=== PATIENT | female | born 1955 | race Caucasian/White ===

== ENCOUNTER → 2018-04-05 18:31 | Outpatient (CLI) | payer BC ==
[~2018-04-05 18:31] MED LIST: ADDERALL 30 MG30 MG PO; BAYER CHEWABLE81 MG PO; METOPROLOL TART25 MG PO; PLAVIX75 MG PO; WELLBUTRIN SR150 MG PO; ZIAC 5-6.25 MG1 TAB PO
[2018-04-05 19:24] LABS: CHOL - HDL RATIO 5.4 ratio (2.3-4.1); LDL-HDL RATIO 3.8 ratio (1.5-3.5)
[2018-04-13 07:46] VITALS: BMI 45.0
== END | disposition home or self-care (01) ==
LOC: D.LABREF 18:31
PROVIDERS: Internal Medicine Cardiovascular Disease
DX: E78.5 Hyperlipidemia, unspecified (principal)

== ENCOUNTER → 2018-04-13 06:58 | Outpatient (CLI) | payer BC ==
[~2018-04-13] VITALS: Ht 152.4 cm; Wt 104.5 kg
--- NOTE | ~2018-04-13 | OP ---
PATIENT NAME: MUNDO CARDONA MEDICAL RECORD: [id number] :59 LOCATION:D.CAT ADMISSION DATE: SURGEON: DARLEEN SCHULTE MD DATE OF OPERATION: 04/13/2018 PROCEDURE: Left heart cath, LV gram, coronary angiogram, PTCA and stenting of the diagonal. DESCRIPTION OF PROCEDURE: The patient brought to cardiac catheterization lab in stable condition. The right wrist was sterilely prepped and draped. The patient had a 6-Upper Sorbian sheath placed into the right radial artery using a modified Seldinger technique. The patient then had serial catheters utilized to intubate the left coronary artery, the right coronary artery, and the left ventricular cavity. We then exchanged the diagnostic catheters for interventional guiding catheters where we were able to intubate the left main and get distal double wire positioned into the LAD and the diagonal system. We were then able to advance a 2.0 x 8 balloon into the area of stenosis in the diagonal vessel showing still greater than 50% residual stenosis. We delivered a 2.25 x 15 stent into the area of stenosis and that was taken to 16 atmospheres. We then showed continued residual stenosis of about 40% and under sizing of the stent, so we took a 2.5 balloon, took it to rated burst pressure and we still felt that the vessel had grown even further after that balloon attempts, so we took a 3.0 balloon and performed angioplasty at 12 atmospheres with a final luminal gain theoretically of 3.2 mm and we show good opposition of the stent to the proximal and distal wall and the procedure was terminated successfully with the reduction of the 95% stenosis to less than 10% residual stenosis. FINDINGS: 1. Left main is a short vessel, immediately bifurcating into a large, dominant circumflex and to an LAD. There is no stenosis in the left main. 2. The LAD itself is a smallish vessel with a mid 40-50% stenosis. 3. The diagonal is actually larger in caliber than the LAD and had a 95% stenosis proximally. 4. The circumflex is a very large dominant vessel, large caliber, large in distribution, dominant distribution without significant stenosis. 5. The RCA is a small vessel, nondominant with mid plaquing. HEMODYNAMICS: Left ventricular ejection fraction is 60%. End-diastolic pressure is normal. There is no significant mitral regurgitation. There is no gradient across the aortic valve. IMPRESSION: 1. Severe single-vessel coronary artery disease. Mild disease remaining in the left anterior descending with preserved left ventricular function. 2. Successful percutaneous transluminal coronary angioplasty and stenting of the diagonal vessel with a drug-eluting stent. RECOMMENDATION: 1. Dual-antiplatelet therapy for 1 year, aggressive lipid modification in the form of maximum atorvastatin 80 mg a day with an optimal LDL value of 70 mg per deciliter or less, aggressive hypertensive control with preferred values of 140/80 or less utilizing beta blockers as clinically tolerated. 2. Continue antianginal therapy with nitrates for symptoms. Follow up in 2 OPERATIVE REPORT [id number] MUNDO CARDONA. TRANSINT:[id number] Voice Confirmation ID: [id number] DOCUMENT ID: [id number] DARLEEN SCHULTE MD at 2344 CC: [id number] DICTATION DATE: 04/13/18923 WELL SERVICE FLOOR WORKER: 04/13/18 1002 DEP CLI 04/13/18 [address] [place] [address]
--- NOTE | ~2018-04-13 | HEMODYNAMI ---
PATIENT:MUNDO CARDONA MEDICAL RECORD: [id number] : 59 LOCATION:DDONYA ADMISSION DATE: 04/13/18 Generatedon:04/13/20189:24 Patient name: MUNDO CARDONA Patient #: [id number] SSN: : 1955 Date of study: 04/13/2018 Page: Of Hemodynamic Procedure Report Patient Data Patient Demographics Procedure consent was obtained First Name: MUNDO Gender: Female Last Name: DULCE : 1955 [facility] Initial: J Age: 63 year(s) Patient #: [id number] Race: Unknown Additional ID: [id number] Contact details Address: [address] [address] State: [place] City: [place] Zip code: [address] Past Medical History Allergies Allergen Reaction Date Comments Reported Other allergy 04/13/2018 WHEAT Admission Admission Data Admission Date: 04/13/2018 Admission Time: 6:58 Height (in.): 61 BSA: 2.01 (m2) Height (cm.): 154.94 BMI: 43.84 (kg/m2) Weight (lbs.): 232 Weight (kg.): 105.23 Procedure Procedure Types Cath Procedure Diagnostic Procedure [facility] w/Coronaries PCI Procedure Coronary Stent Coronary Stent Initial Procedure Description Procedure Date Procedure Date: 04/13/2018 Procedure Start Time: 8:39 Procedure End Time: 9:22 Procedure Staff Name Function Jonathan Walker MD Performing Physician Jes Durand RT Scrub Feliberto Leon RT Monitor Masha Shore RN Nurse Adolfo Danielle RN Nurse Procedure Data Cath Procedure Fluoroscopy Diagnostic fluoroscopy Total fluoroscopy Time: time: 14.3 min 14.3 min Diagnostic fluoroscopy Total fluoroscopy dose: dose: 2892 mGy 2892 mGy Contrast Material Contrast Material Type Amount (ml) Isovue 300 160 Entry Location Entry Primary Successful Side Size Upsize Upsize Entry Closure Lamar ccessful Closure Location (Fr) 1 (Fr) 2 (Fr) Remarks Device Remarks Radial Right 6 Fr Mechanical artery Short Compression Estimated blood loss: 10 ml Diagnostic catheters Device Type Used For End Catheter Placement DIAGNOSTIC [place] 110cm 5 Procedure Fr catheter ([id number]) Procedure Complications No complications Procedure Medications Medication Administration Route Dosage 0.9% NaCl I.V. 100 ml/hr Oxygen etCO2 Nasal cannula 2 l/min Lidocaine 2% added to field 20 Heparin Flush Bag added to field 2 bags (1000units/500ml NS) Versed I.V. 2 mg Fentanyl I.V. 25 mcg Radial Cocktail I.A. 1 syringe (Verapomil 2mg/Nitro 400mcg/Heparin 1500units) Versed I.V. 1 mg Fentanyl I.V. 25 mcg Angiomax (bolus) I.V. 15.8 ml Angiomax Drip I.V. drip 36.8 ml/hr (250mg/50ml NS) (Standard) Fentanyl I.V. 25 mcg Angiomax Drip 0 ml/hr (250mg/50ml NS) (Standard) Hemodynamics Rest BSA: 2.01 (m2) O2 Consumption: Estimated: 197.47 (ml/min) O2 Consumption indexed : Estimated:98.24 (ml/min/m) Heart Rate: 80 (bpm) Pressure Samples Time Site Value (mmHg) Purpose Heart Use Rate(bpm) 8:42 LV 93/0,3 EDP 76 8:42 AO 74/16(42) Snapshot 72 8:45 AO 96/63(78) Snapshot 75 Gradients Valve Time Site Site Mean SEP/DFP Peak To Heart Use 1 2 (mmHg) (sec/min) Peak Rate (mmHg) (bpm) Aortic 8:42 LV AO 109 Snapshots Pre Cath Intra NCS Post Cath Vital Signs Time Heart Resp SPO2 etCO2 NIBP (mmHg) Rhythm Pain Sedation Rate (ipm) (%) (mmHg) Status Level (bpm) 8:37:20 78 15 97 24.6 136/85(111) NSR 0 (11) 10(A) , No pain 8:41:31 80 17 98 22.4 134/78(92) NSR 0 (11) 10(A) , No pain 8:46:14 71 17 97 24.6 115/68(86) NSR 0 (11) 10(A) , No pain 8:50:54 79 16 98 17.1 130/70(96) NSR 0 (11) 10(A) , No pain 8:55:43 73 18 97 31.3 113/72(92) NSR 0 (11) 9(A) , No pain 9:00:23 73 15 97 31.3 120/70(93) NSR 0 (11) 9(A) , No pain 9:05:08 74 14 99 32.8 114/72(92) NSR 0 (11) 9(A) , No pain 9:09:44 76 14 98 31.3 130/79(107) NSR 0 (11) 10(A) , No pain 9:14:33 76 14 100 33.6 140/73(100) NSR 0 (11) 10(A) , No pain 9:19:30 73 14 100 36.5 129/71(109) NSR 0 (11) 10(A) , No pain Medications Time Medication Route Dose Verified Delivered Reason Notes Effectiveness by by 8:29:27 0.9% NaCl I.V. 100 Jonathan Masha used for ml/hr Aaron Shore procedure MD ALBERTO 8:29:36 Oxygen etCO2 Nasal 2 l/min Jonathan Masha used for cannula Aaron velazco MD, RN 8:29:42 Lidocaine 2% added to field 20ml Jonathan Masha used for vial Aaron Shore procedure MD ALBERTO 8:29:50 Heparin Flush added to field 2 bags Jonathan Masha used for Bag Aaron Shore procedure (1000units/500ml MD ALBERTO NS) 8:37:47 Versed I.V. 2 mg Jonathan Buffie for sedati on Aaron Danielle RN, MD 8:37:55 Fentanyl I.V. 25 mcg Jonathan Buffie for sedati on Aaron Danielle RN, MD 8:38:51 Radial Cocktail I.A. 1 Jonathan Jonathan for (Verapomil syringe Aaron Walker MD vasodilation 2mg/Nitro MD 400mcg/Heparin 1500units) 8:41:52 Versed I.V. 1 mg Jonathan Jonathan for sedati on Aaron Walker MD, MD 8:42:05 Fentanyl I.V. 25 mcg Jonathan Jonathan for sedati on Aaron Walker MD, MD 8:52:39 Angiomax (bolus) I.V. 15.8 ml Jonathan Jonathan for Aaron Walker MD anticoagulation 8:54:53 Angiomax Drip I.V. drip 36.8 Jonathan Masha for (250mg/50ml NS) ml/hr Aaron Shore antiplatelet (Standard) MD ALBERTO therapy 9:03:07 Fentanyl I.V. 25 mcg Jonathan Masha for sedati on Aaron Shore MD, RN 9:18:08 Angiomax Drip I.V. 0 ml/hr Jonathan Masha for (250mg/50ml NS) drip-discontinued Aaron Shore antiplatelet (Standard) MD ALBERTO therapy Procedure Log Time Note 7:59:51 Time tracking: Regular hours (M-F 7:00 - 5:00) 7:59:56 Plan of Care:Hemodynamics will remain stable., Cardiac rhythm will remain stable., Comfort level will be maintained., Respiratory function will remain adequate., Patient/ family verbilizes understanding of procedure., Procedure tolerated without complication., Recovers from procedure without complications.. 7:59:58 Signed procedure consent form obtained from patient. 8:00:09 H&P Date Dictated: 04/12/2018 Within 30 days and on chart., H&P Addendum completed by physician on day of procedure. (MUST COMPLETE FOR ALL OUTPATIENTS). 8:00:28 Patient allergic to Other allergyWHEAT 8:01:14 Adolfo Danielle RN sent for patient. Start room use. 8:02:14 Patient Height : 61 inches 8:02:17 Patient Weight : 232 lbs 8:23:23 Patient received from Pre/Post Procedure Room to CCL 1 Alert and oriented. Tansferred to table in Supine position. 8:23:24 Warm blankets applied, and willi hugger turned on for patient comfort. 8:23:24 Correct patient and procedure confirmed by team. 8:23:25 ECG and BP/O2 sat monitors applied to patient. 8:29:27 0.9% NaCl 100 ml/hr I.V. was administered by Masha Shore RN; used for procedure; 8:29:36 Oxygen 2 l/min etCO2 Nasal cannula was administered by Masha Shore RN; used for procedure; 8:29:42 Lidocaine 2% 20ml vial added to field was administered by Masha Shore RN; used for procedure; 8:29:50 Heparin Flush Bag (1000units/500ml NS) 2 bags added to field was administered by Masha Shore RN; used for procedure; 8:29:52 Vital chart was started 8:34:41 Rhythm: sinus rhythm 8:34:42 Full Disclosure recording started 8:34:43 Pre-procedure instructions explained to patient. 8:34:44 Pre-op teaching completed and patient verbalized understanding. 8:34:45 Family in patients room. 8:34:54 Patient NPO since Midnight. 8:34:55 Is the patient allergic to Iodine/contrast media? No. 8:34:59 Is patient on blood thinner?Yes 8:35:07 ACC The patient was administered the following blood thiners within the last 24 hours: ACCPlavix 8:35:17 Patient diabetic? No. 8:35:20 Previous problem with sedation/anesthesia? No ? 8:35:21 Snore? Yes 8:35:21 Sleep apnea? Yes 8:35:23 Deviated septum? No 8:35:23 Opens mouth fully? Yes 8:35:24 Sticks out tongue? Yes 8:35:28 Airway obstruction? Yes COPD 8:35:34 Dentures? No ? 8:35:37 Pre procedure: right dorsailis pedis pulse 1+ Palpable, but thready & weak; easily obliterated 8:35:39 Modified Cornelius's test Ulnar < 7 seconds 8:35:41 Patient pain scale 0/10 ?. 8:35:45 IV patent on arrival in left forearm with 0.9% NaCl at O. 8:35:47 Lab results completed and on chart. 8:35:51 Right Radial & Right Groin area was prepped with chlora-prep and draped in sterile fashion 8:35:53 Alarms reviewed by R. N. 8:35:53 Sharps counted by scrub and verified by R.N. 8:35:55 --------ALL STOP TIME OUT------ 8:35:55 Final Timeout: patient, procedure, and site verified with staff and physician. All members of the team are in agreement. 8:35:58 Right Radial & Right Groin site verified by team. 8:36:08 Physical assessment completed. ASA score P 2 - A patient with mild systemic disease as per Jonathan Walker MD. 8:36:11 Sedation plan: IV Moderate Sedation Medication:Versed, Fentanyl 8:37:47 Versed 2 mg I.V. was administered by Adolfo Danielle RN; for sedation; 8:37:55 Fentanyl 25 mcg I.V. was administered by Adolfo Danielle RN; for sedation; 8:38:51 Radial Cocktail (Verapomil 2mg/Nitro 400mcg/Heparin 1500units) 1 syringe I.A. was administered by Jonathan Walker MD; for vasodilation; 8:39:13 Use device set Radial Dx or PCI 8:39:15 Tegaderm 4 x 4 (1626W) opened to sterile field. 8:39:16 ACIST Manifold (51780) opened to sterile field. 8:39:17 ACIST Hand Control (88095) opened to sterile field. 8:39:18 ACIST Syringe (63988) opened to sterile field. 8:39:19 Medline Cath Pack ([id number]) opened to sterile field. 8:39:19 Bag Decanter (2002S) opened to sterile field. 8:39:20 DIAGNOSTIC WIRE .035 260cm J wire (356407) opened to sterile field. 8:39:20 MBrace Wrist Support ([id number]) opened to sterile field. 8:39:22 SHEATH 6Fr Prelude Radial ([id number]) opened to sterile field. 8:39:33 Procedure started. 8:39:39 Local anesthetic to right radial artery with Lidocaine 2% by Jonathan Walker MD.INITIAL ACCESS ONLY 8:40:43 A 6 Fr Short sheath was inserted into the Right Radial artery 8:41:15 Zero performed for pressure channel P1 8:41:49 Baseline sample Acquired. 8:41:52 Versed 1 mg I.V. was administered by Jonathan Walker MD; for sedation; 8:42:05 Fentanyl 25 mcg I.V. was administered by Jonathan Walker MD; for sedation; 8:42:45 A DIAGNOSTIC [place] 110cm 5 Fr catheter (698750) was advanced over the wire and used for Procedure. 8:43:19 LV angiography performed. 8:43:21 LV gram done using RICE 8:43:32 EF : 60 % 8:43:36 LV hemodynamics recorded. 8:43:40 Injector settings: Ml/sec: 12, Volume: 8, 8:43:54 LCA angiography performed. 8:48:08 RCA angiography performed. 8:49:35 Catheter exchanged over wire. 8:49:41 Use device set NORRED PCI 8:49:51 INFLATOR Merit BasixCompak (TU2458) opened to sterile field. 8:49:52 COPILOT Valve Control (9482516) opened to sterile field. 8:49:53 BMW 190cm [place] 2 J wire ([id number]) opened to sterile field. 8:50:52 GUIDE 6FR EBU 3.0 catheter ([id number]) opened to sterile field. 8:51:24 6 Fr EBU 3 guide catheter was inserted over the wire 8:52:39 Angiomax (bolus) 15.8 ml I.V. was administered by Jonathan Walker MD; for anticoagulation; 8:54:16 BMW wire advanced. 8:54:53 Angiomax Drip (250mg/50ml NS) (Standard) 36.8 ml/hr I.V. drip was administered by Masha Shore RN; for antiplatelet therapy; 8:56:08 Wire advanced across lesion. 8:58:14 First wire advanced down the LAD. 8:58:31 BMW 190cm [place] 2 J wire ([id number]) opened to sterile field. 8:58:47 2nd BMW wire advanced. 8:59:58 2nd wire advanced down the DIAG. 9:03:07 Fentanyl 25 mcg I.V. was administered by Masha Shore RN; for sedation; 9:03:50 Inflate balloon Inflation number: 1 A EUPHORA 2.0 x 10 Balloon ([id number]) was prepped and advanced across the 1st Diag, then inflated to 8 SHANNEN for 0:10 (min:sec). 9:05:28 Balloon removed over the wire. 9:08:43 Place stent Inflation Number: 2 A EDWARD RX 2.25 x 15 stent ([id number]) was prepped and advanced across the 1st Diag. The stent was deployed at 10 SHANNEN for 0:10 (min:sec). 9:09:12 Stent catheter was removed intact over wire. 9:11:49 Inflate balloon Inflation number: 3 A EUPHORA 2.5 x 10 Balloon ([id number]) was prepped and advanced across the 1st Diag, then inflated to 8 SHANNEN for 0:10 (min:sec). 9:13:00 Balloon removed over the wire. 9:14:24 Inflate balloon Inflation number: 4 A EUPHORA 3.0 x 10 balloon ([id number]) was prepped and advanced across the 1st Diag, then inflated to 10 SHANNEN for 0:10 (min:sec). 9:15:25 Multiple inflations made at 10 Atms. 9:15:41 Balloon removed over the wire. 9:15:42 Wire removed. 9:15:42 Wire removed. 9:18:08 Angiomax Drip (250mg/50ml NS) (Standard) 0 ml/hr I.V. drip-discontinued was administered by Masha Shore RN; for antiplatelet therapy; 9:18:15 Guide catheter removed. 9:18:19 TR BAND Standard ([id number]) opened to sterile field. 9:18:30 Sheath removed intact; hemostasis achieved with Mechanical Compression to the Right Radial artery. 9:18:32 Procedure ended.(Physican Out) 9:19:48 Fluoroscopy time 14.30 minutes. 9:19:53 Fluoroscopy dose: 2892 mGy 9:19:53 Flurop Dose total: 2892 9:19:56 Contrast amount:Isovue 300 160ml. 9:19:58 Sharps counted by scrub and verified by R.N. 9:20:00 TR band inflated with 12cc of air. 9:20:02 Insertion/operative site no bleeding no hematoma. 9:20:16 Post Procedure Pulses reassessed and unchanged 9:20:19 Post-procedure physical assessment completed. ASA score P 2 - A patient with mild systemic disease as per Jonathan Walker MD. 9:20:25 Post procedure rhythm: unchanged. 9:20:40 Estimated blood loss: 10 ml 9:20:42 Post procedure instruction explained to patient.Patient verbalizes understanding. 9:20:42 Patient needs reinforcement of post procedure teaching. 9:20:52 Procedure type changed to Cath procedure, Diagnostic procedure, LHC, LHC w/Coronaries, PCI procedure, Coronary Stent, Coronary Stent Initial 9:20:53 Procedure and supply charges have been captured, reviewed, submitted and are correct. 9:20:56 Procedure Complication : No complications 9:22:08 Vital chart was stopped 9:22:09 See physician's report for complete and final results. 9:22:10 Report given to Pre/Post Procedure Room. 9:22:14 Patient transfered to Pre/Post Procedure Room with Stretcher. 9:22:20 Procedure ended. 9:22:20 Full Disclosure recording stopped 9:22:26 End room use (Document Last) Intervention Summary Intervention Notes Time ActionType Lesion and Equipment Used Action# Pressure Duration Attributes 9:03:50 Inflate 1st Diag EUPHORA 2.0 x 1 8 00:10 balloon 10 Balloon ([id number]) 9:08:43 Place stent 1st Diag EDWARD RX 2.25 x 2 10 00:10 15 stent ([id number]) 9:11:49 Inflate 1st Diag EUPHORA 2.5 x 3 8 00:10 balloon 10 Balloon ([id number]) 9:14:24 Inflate 1st Diag EUPHORA 3.0 x 4 10 00:10 balloon 10 balloon ([id number]) Device Usage Item Name Manufacture Quantity Catalog Number Hospital Part Current Minimal Lot# / Charge Number Stock Stock Serial# Code Tegaderm 4 x 4 3M 1 [id number] 230898 781227 863145 5 (1626W) ACIST Manifold Acist 1 61534 756974 778841 375511 5 (62592) [employer] Inc ACIST Hand Acist 1 24144 116290 402007 709885 5 Control (46118) [employer] ACIST Syringe Acist 1 38626 352322 468482 927118 20 (58327) Medical Systems Inc Medline Cath Cardinal 1 [id number] 703079 72589 766846 5 Pack Health ([id number]) Bag Decanter Microtek 1 2001S 747265 88924 151629 5 (2001S) Medical Inc. DIAGNOSTIC WIRE [place] 1 646771 807729 755995 761965 30 .035 260cm J wire (982384) MBrace Wrist Advanced 1 140-0250-00 142262 66155 877933 5 Support Vascular ([id number]) Dynamics SHEATH 6Fr Merit 1 [id number] 199383 521021 012249 5 Prelude Radial Medical ([id number]) DIAGNOSTIC Terumo 1 66-5745 319724 862508 000025 5 [place] 110cm 5 Fr catheter (123116) INFLATOR Merit Merit 1 RA8579 435362 733549 380539 15 [facility] (GO0857) COPILOT Valve [place] 1 9644748 193707 349571 118786 5 Control Vascular (3143167) BMW 190cm [place] 2 [id number] 331977 74609 661003 5 [place] 2 J Vascular wire (5883063T) GUIDE 6FR EBU Medtronic 1 [id number] 095482 86385 993861 0 3.0 catheter (PN4VQP72) EUPHORA 2.0 x Medtronic 1 [id number] 187747 178730 963296 5 [id number] 10 Balloon ([id number]) EDWARD RX 2.25 x Medtronic 1 [id number] 688372 1211738 496793 5 [id number] 15 stent ([id number]) EUPHORA 2.5 x Medtronic 1 [id number] 297099 937749 890109 5 [id number] 10 Balloon ([id number]) EUPHORA 3.0 x Medtronic 1 [id number] 939416 465878 834618 5 [id number] 10 balloon ([id number]) TR BAND Terumo 1 [id number] 998818 787544 765930 40 Standard ([id number]) Signature Audit [place] Stage Time Signature Unsigned Intra-Procedure 04/13/2018 Feliberto Leon 9:24:44 AM RT(R) Signatures Monitor : Feliberto Leon RT Signature : Date : Time : [facility] [address] [place], [place] [address]
[2018-04-13 07:46] VITALS: BP 152/96; Ht 152.4 cm; Wt 104.5 kg
[2018-04-13 08:26] LABS: BASOPHILS 0.8 % (0-2); HEMOGLOBIN 15.3 g/dL (12-16); IMMATURE GRANULOCYTES 0.7 % (0-5); MCH 29.5 pg (26.0-34.0); MCHC 34.8 g/dL (31.0-37.0); MCV 84.8 fL (80.0-100.0); MEAN PLATELET VOLUME 11.8 fL (7.4-10.4); MONOCYTES 8.7 % (2-11); NEUTROPHILS 59.8 % (40-80); PLATELET COUNT 362 10x3/uL (130-400); RBC 5.19 10x6/uL (4.00-5.40); RDW 14.1 % (11.5-14.5); WBC 9.5 10x3/uL (4.8-10.8)
[2018-04-13 09:44] LABS: CALC OSMOLALITY 276 mosm/kg (275-300); CALCIUM 8.2 mg/dL (8.5-10.1); CARBON DIOXIDE 25.7 mmol/L (21.0-32.0); CHLORIDE - SERUM 106 mmol/L (98-107); CREATININE - SERUM 0.7 mg/dL (0.6-1.3); GLUCOSE 119 mg/dL (74-106); POTASSIUM - SERUM 3.7 mmol/L (3.5-5.1); SODIUM 138 mmol/L (136-145); UREA NITROGEN 13 mg/dL (7-18); eGFR NON AFRICAN AMERICAN 90 mL/min (90-120)
== END | disposition home or self-care (01) ==
LOC: D.MAMMO 02-18 15:45 → D.CATH 06:58 → D.MAMMO 08:30
PROVIDERS: Internal Medicine Cardiovascular Disease
DX: I25.119 Atherosclerotic heart disease of native coronary artery with unspecified angina pectoris (principal); Z01.812 Encounter for preprocedural laboratory examination

== ENCOUNTER → 2018-05-06 08:18 | Outpatient (CLI) | payer BC ==
[2018-04-13 07:46] VITALS: BMI 45.0
--- NOTE | ~2018-05-06 | EC ---
PATIENT:MUNDO CARDONA DATE OF SERVICE: 05/06/18 SEX: F MEDICAL RECORD: [id number] DATE OF : 59 LOCATION:D.RT AGE OF PATIENT: 63 ADMISSION DATE: 05/06/18 REFERRING PHYSICIAN: INTERPRETING PHYSICIAN: DARLEEN SCHULTE MD ECHOCARDIOGRAM REPORT ECHO CHARGES 4 ECHO COMPLETE Date: 05/06/18 CLINICAL DIAGNOSIS: JIMÉNEZ, HX OF CAD/STENT/HTN ECHOCARDIOGRAPHIC MEASUREMENTS (adult normal given) AC root (d.<3.7cm) 3.3 cm LV Septum d (<1.2 cm> 1.2 cm Valve Excursion 1.5 cm LV Septum (systole) 1.4 cm Left Atria (s.<4.0cm> 2.9 cm LVPW d(<1.2cm) 1.3 cm RV (d.<2.3cm) 3.6 cm LVPW (sytole) 1.5 cm LV diastole(<5.6CM) 5.0 cm MV E-F(>70mm/sec) cm LV systole 3.7 cm LVOT Diameter 1.6 cm MV exc.(>10mm) 1.2 cm Est.ejection fraction (50-75%) % DOPPLER: LVIT cm/sec A 75.0 cm/sec E 47.0 cm/sec LA cm/sec RVSP 16 mmHg LVOT 106 cm/sec AOP1/2T m/s Asc. Ao 141 cm/sec RVOT 73 cm/sec RA cm/sec PA 103 cm/sec AV Gradient Peak 7.99 mmHg AV Mean 4.60 mmHg AV Area 1.3 cm MV Gradient Peak 2.42 mmHg MV Mean 0.97 mmHg MV Area cm COMMENTS: Powder Worker: 2 CHARLES OATES Roustabout Crew: Trinidad Schulte TAPE# PACS Pericardial Effusion N DATE OF SERVICE: PROCEDURE: Transthoracic echocardiogram. FINDINGS: 1. Left ventricle has mild left ventricular hypertrophy. Inflow characteristics consistent with diastolic dysfunction, ejection fraction of 60%. No regional wall motion abnormalities. 2. The left atrium is normal size, shape, structure, and function. 3. The aortic valve is normal. ECHOCARDIOGRAM REPORT [id number] MUNDO CARDONA 4. The mitral valve is normal. 5. The tricuspid valve is normal. 6. The pericardium is normal. 7. The right ventricle is mildly dilated. The RVSP is normal. 8. The right atrium is normal. 9. The pulmonic valve is normal. There are no effusions. CONCLUSION: This is a normal echocardiogram with evidence of mild hypertensive heart disease. TRANSINT:[id number] Voice Confirmation ID: [id number] DOCUMENT ID: [id number] DARLEEN SCHULTE MD at 0916 CC: [id number] DICTATION DATE: 05/11/1844 SUPERVISOR CALIBRATION: 05/11/18 0957 DEP CLI 05/06/18 [id number] [place] [address]
== END | disposition home or self-care (01) ==
LOC: D.ECHO 04-28 09:00 → D.RT 08:00
DX: R06.09 Other forms of dyspnea (principal)

== ENCOUNTER → 2018-06-08 16:26 | Outpatient (CLI) | payer BC ==
[2018-04-13 07:46] VITALS: BMI 45.0
[2018-06-08 17:10] LABS: CHOL - HDL RATIO 3.5 ratio (2.3-4.1); LDL-HDL RATIO 2.2 ratio (1.5-3.5)
== END | disposition home or self-care (01) ==
LOC: D.LABREF 16:26
PROVIDERS: Internal Medicine Interventional Cardiology
DX: E78.5 Hyperlipidemia, unspecified (principal)